=== PATIENT | female | born 1955 | race Caucasian/White ===

== ENCOUNTER 2019-11-30 20:30 | Emergency (ER) | payer SELFPAY | END 2019-11-30 21:10 | disposition home or self-care (01) | LOC: EDH 20:30 | DX: R10.9 Unspecified abdominal pain (principal); M25.562 Pain in left knee; I10 Essential (primary) hypertension ==

== ENCOUNTER 2019-12-05 18:46 | Emergency (ER) | payer MEDICARE, OTHER ==
[2019-12-05 19:48] LABS: BASOPHILS % (AUTO) 0.4 % (0.0-5.0); EOSINOPHILS % (AUTO) 3.5 % (0.0-8.0); HEMATOCRIT 35.3 % (36-48); LYMPHOCYTES % (AUTO) 26.2 % (21.0-51.0); MEAN CORPUSCULAR HEMOGLOBIN 32.4 pg (27.0-33.0); MEAN CORPUSCULAR HGB CONC 34.6 g/dL (32.0-36.0); MEAN CORPUSCULAR VOLUME 93.9 fL (79-99); NEUTROPHILS % (AUTO) 61.6 % (40.0-77.0); PLATELET COUNT (AUTO) 249 K/uL (130-400); RED BLOOD CELL COUNT(AUTO) 3.76 MIL/uL (4.00-5.50); RED CELL DISTRIBUTION WIDTH 12.4 % (11.0-15.5); WHITE BLOOD COUNT (AUTO) 7.1 K/uL (4.8-10.8)
[2019-12-05] MEDS ORDERED: FLUCONAZOLE 200 MG/NS 100 ML 100 ML ONE (19:57)
[2019-12-05 20:00] LABS: CREATININE 0.5 mg/dL (0.5-1.5); POTASSIUM 3.7 mmol/L (3.5-5.1)
[2019-12-05 20:06] LABS: ALBUMIN 3.5 g/dL (3.5-5.0); BILIRUBIN,TOTAL 0.4 mg/dL (0.2-1.0); TOTAL PROTEIN, SERUM 6.8 g/dL (6.0-8.3)
[2019-12-05 20:08] LABS: B-TYPE NATRIURETIC PEPTIDE 19 pg/mL (0-100)
[2019-12-05] MEDS ORDERED: FLUCONAZOLE 100 MG TAB ONE (20:08)
[2019-12-05 20:12] LABS: APPEARANCE,URINE Clear (CLEAR); BILIRUBIN,URINE Negative (NEGATIVE); COLOR,URINE Yellow (YELLOW); GLUCOSE, URINE (UA) Negative (NEGATIVE); KETONES,URINE Negative (NEGATIVE); LEUKOCYTE ESTERASE ,URINE Moderate (NEGATIVE); NITRATE,URINE Negative (NEGATIVE); OCCULT BLOOD,URINE Small (NEGATIVE); PH,URINE 5.5 (5.0-8.0); PROTEIN,URINE Negative (NEGATIVE)
[2019-12-05 20:18] LABS: BACTERIA,URINE Rare /HPF (None Seen); SQUAMOUS EPITHELIAL CELL,UR Few /HPF (0-2)
[2019-12-05 20:19] LABS: MUCUS,URINE Few LPF (None Seen)
== END 2019-12-05 20:41 | disposition home or self-care (01) ==
LOC: EDH 18:46
DX: L03.314 Cellulitis of groin (principal); M19.90 Unspecified osteoarthritis, unspecified site
CPT/HCPCS: 36415; 71045; 80053; 81001; 82550; 83880; 84484; 85025; 87088; 99284; J1450